=== PATIENT | male | born 1950 | race Two or more races ===

== ENCOUNTER 2024-09-08 15:35 | Emergency (ER) | payer MEDICARE, SELFPAY ==
[2024-09-08 15:37] VITALS: BMI 29.9
[2024-09-08 15:59] VITALS: BP 174/91; PULSE 90; RESP 17; TEMP 37.5; O2SAT 96
--- NOTE | 2024-09-08 16:05 | XR_ITS ---
Examination: Abdomen AP single view Technique: AP portable supine abdomen, single view Exam date and time: September 08, 2024 1614 hrs. Indications: Abdominal pain and distention vomiting today Findings: Nonobstructive bowel gas pattern. Moderate stool throughout the colon. No free air. Mild to moderate narrowing hip joints Impression: Nonobstructive bowel gas pattern
--- NOTE | 2024-09-08 16:06 | PD.EDRME ---
Rapid Medical Screening Exam E Arrival date/time: 09/08/24 15:35 This is a 74-year-old male that comes in with complaints of abdominal pain, abdominal bloating, hiccups vomiting and diarrhea. Patient states symptoms started last night. Patient has a low-grade temp upon arrival. Patient has a history of diabetes and high blood pressure. Chief Complaint: Abdominal Pain Time Seen by Provider: 09/08/24 15:58 Vital signs: Vital Signs Temperature 99.5 F 09/08/24 15:59 Pulse Rate 90 09/08/24 15:59 Respiratory Rate 17 09/08/24 15:59 Blood Pressure 174/91 H 09/08/24 15:59 Pulse Oximetry (%) 96 09/08/24 15:59 Oxygen Delivery Method Room Air 09/08/24 15:59
[2024-09-08 16:28] LABS: Collection Type, Urine Voided; Squamous Epithelial Cell,Urine 0 /hpf (0-5)
[2024-09-08 16:46] LABS: Basophils # (Auto) 0.0 Thou/mm3 (0.0-0.2); Basophils % (Auto) 1 % (0-2.5); Eosinophils # (Auto) 0.4 Thou/mm3 (0.0-0.5); Eosinophils % (Auto) 5 % (0-10); Hematocrit 39.5 % (41.0-53.0); Hemoglobin 14.0 g/dL (13.5-16.0); Immature Granulocytes Auto 0.03 Thou/mm3 (0.00-0.00); Lymphocytes # (Auto) 1.0 Thou/mm3 (1.0-4.8); Lymphocytes % (Auto) 15 % (10-50); Mean Corpuscular HGB Conc 35.4 g/dl (31.0-37.0); Mean Corpuscular Hemoglobin 30.2 pg (25.0-35.0); Mean Corpuscular Volume 85 fL (80-100); Monocytes # (Auto) 0.5 Thou/mm3 (0.0-0.8); Monocytes % (Auto) 7 % (0-12); Neutrophils # (Auto) 5.0 Thou/mm3 (1.8-7.7); Neutrophils % (Auto) 72 % (37-80); Nucleated Red Blood Cell # 0.00 Thou/mm3 (0.00-0.00); Nucleated Red Blood Cell % 0 /100 WBC (0); Platelet Count 152 Thou/mm3 (140-440); RDW Standard Deviation 41.1 fL (35.1-43.9); Red Blood Count 4.64 Miln/mm3 (4.50-5.90); White Blood Count 6.9 Thou/mm3 (3.8-10.6)
[2024-09-08 16:47] LABS: Bilirubin,Urine Negative (Negative); Blood,Urine 1+ (Negative); Clarity,Urine Clear (Clear/Hazy); Color,Urine Yellow (Lt Yel-Yel); Culture Indicated,Urine Not Indicated; Glucose, Urine Negative (Negative); Ketones,Urine Negative (Negative); Leukocyte Esterase,Urine Negative (Negative); Nitrite,Urine Negative (Negative); PH,Urine 5.5 (5.0-7.0); Protein,Urine Trace (Neg - Trace); RBC,Urine 5 /hpf (0-3); Specific Gravity,Urine 1.025 (1.001-1.035); Urobilinogen,Urine Negative mg/dL (0.0-1.0); WBC,Urine 2 /hpf (0-5)
[2024-09-08 17:13] LABS: Alanine Aminotransferase 31 U/L (10-49); Albumin, Serum 4.5 gm/dL (3.4-4.8); Albumin/Globulin Ratio 1.8 (1.2-2.2); Alkaline Phosphatase 56 U/L (46-116); Anion Gap 11 (7-16); Aspartate Amino Transferase 22 U/L (0-34); BUN/Creatinine Ratio 14 Ratio (12-20); Bilirubin,Total 1.0 mg/dL (0.3-1.2); Blood Urea Nitrogen 13 mg/dL (9-23); Calcium 8.8 mg/dL (8.3-10.6); Calcium (Corrected) 8.8 mg/dL (8.5-10.1); Carbon Dioxide 24.0 mMol/L (20.0-31.0); Chloride 105 mMol/L (98-107); Creatinine (Component) 0.9 mg/dL (0.6-1.3); Estimated Creatinine Clearance 71.9 mL/min (>60); Globulin 2.5 gm/dL (2.3-3.5); Glucose 179 mg/dL (74-106); Lipase 22 U/L (12-53); Osmolality,Calculated 283 (275-295); Potassium 3.6 mMol/L (3.4-5.1); Sodium 140 mMol/L (136-145); Total Protein 7.0 gm/dL (5.7-8.2); eGFR > 60 See Note
--- NOTE | 2024-09-08 17:30 | PD.EDABDPN ---
ED Abdominal Pain RME/HPI General Chief Complaint: Abdominal Pain Stated complaint: ABD PAIN, HICCUPS, NAUSEA Time seen by provider: 09/08/24 15:58 Arrival date/time: 09/08/24 15:35 Limitations: no limitations RME / HPI RME / HPI narrative: 09/08/24 15:35 This is a 74-year-old male that comes in with complaints of abdominal pain, abdominal bloating, hiccups vomiting and diarrhea. Patient states symptoms started last night. Patient has a low-grade temp upon arrival. Patient has a history of diabetes and high blood pressure. DR. AVI JOHNSON ED EVALUATION 74 year old male with history of hypertension, diabetes, and prostate with status post robotic surgery presents to the ED with complaint of abdominal pain, nausea, and persistent hiccups beginning last night. States for dinner he had chicken wings and two beers. Reportedly shortly after eating his abdomen felt bloated that was accompanied by nausea and vomiting. Shortly after followed by hiccups remaining constant since. No other associated symptoms or complaints reported. Denies fevers, chills, chest pain, cough, shortness of breath, changes in bowel habits, or urinary symptoms. Related Data Home Medications ?Medication ?Instructions ?Recorded ?Confirmed atorvastatin 20 mg tablet (Lipitor) 20 mg PO QDAY 10/11/19 12/18/23 amlodipine 10 mg tablet 10 mg PO QDAY 05/04/20 12/18/23 metformin 1,000 mg tablet 1,000 mg PO BID 05/04/20 12/18/23 tadalafil 10 mg tablet (Cialis) 10 mg PO DIRECTED PRN 07/20/21 12/18/23 cholecalciferol (vitamin D3) 50 50 mcg PO QDAY 06/10/22 12/18/23 mcg (2,000 unit) capsule Allergies Allergy/AdvReac Type Severity Reaction Status Date / Time No Known Allergies Allergy Verified 09/08/24 15:36 Review of Systems Review of Systems Systems Reviewed: All systems reviewed, normal except as documented Past Medical History Past Medical History CARDIAC: Negative Congestive Heart Failure RESPIRATORY: Negative Chronic Obstructive Pulmonary Disease (COPD) GENITOURINARY: Negative Renal Disease ENDOCRINE: Negative Diabetes Mellitus Type 1 or Diabetes Mellitus Type 2 Social History SMOKING STATUS: Never smoker ED Exam General Limitations: Present no limitations General appearance: Present alert and in no apparent distress Head Head exam: Present atraumatic, normocephalic and normal inspection Eye Eye exam: Present normal appearance, PERRL and EOMI ENT ENT exam: Present normal exam, normal oropharynx and mucous membranes moist Neck Neck exam: Present normal inspection, full ROM and trachea midline Chest Chest inspection: Present normal inspection and symmetric chest wall rise Respiratory Respiratory exam: Present normal lung sounds bilaterally Cardiovascular Cardiovascular exam: Present regular rate, normal rhythm and normal heart sounds Abdominal Exam Abdominal exam: Present soft and normal bowel sounds Extremities Exam Extremities exam: Present normal inspection and full ROM Back Exam Back exam: Present normal inspection and full ROM Neurological Exam Neurological exam: Present alert, oriented X3 and CN II-XII intact Psychiatric Psychiatric exam: Present normal affect and normal mood Skin Skin exam: Present warm, dry, intact and normal color Course Quality Measures none Orders Category Date Time Status Bedside COVID-19 Antigen Test NOW Care 09/08/24 16:05 Completed Bedside Influenza A&B Antigen Test NOW Care 09/08/24 16:05 Completed Insert IV NOW Care 09/08/24 20:05 Completed KUB [XR abdomen 1V] Stat Exams 09/08/24 16:05 Completed CBC Stat Lab 09/08/24 16:26 Completed Comprehensive Metabolic Panel Stat Lab 09/08/24 16:26 Completed Lipase Stat Lab 09/08/24 16:26 Completed Troponin I Stat Lab 09/08/24 16:26 Completed Urinalysis, C/S if Indicated Stat Lab 09/08/24 16:19 Completed DiphenhydrAMINE [Benadryl] Med 09/08/24 17:28 Discontinued 12.5 mg PO X1 ONE Metoclopramide Inj [Reglan Inj] Med 09/08/24 20:02 Discontinued 10 mg IVP X1 ONE Metoclopramide [Reglan] Med 09/08/24 17:27 Discontinued 10 mg PO X1 ONE Vital Signs Vital signs: Vital Signs Temperature 99.5 F 09/08/24 15:59 Pulse Rate 90 09/08/24 15:59 Respiratory Rate 17 09/08/24 15:59 Blood Pressure 174/91 H 09/08/24 15:59 Pulse Oximetry (%) 96 09/08/24 15:59 Oxygen Delivery Method Room Air 09/08/24 15:59 Pulse ox is 96% on room air which is adequate. Abdominal Pain MDM MDM Narrative MDM Narrative:: I, Debra Adkins am scribing for and in the presence of Dr. Isabel. 1800: Patient signed out to Dr. Antoine pending reevaluation and final disposition. Patient data External records reviewed:: [facility] previous records (I reviewed outpatient uro note from 12/21/2023 ) Clinical information provided by:: patient Social determinants that could affect healthcare access:: alcohol use (occasional alcohol use ) Patient has the following chronic illnesses:: hypertension, diabetes, and prostate with status post robotic surgery How is presenting disease/condition affected by chronic disease/condition?: exacerbated by Evaluation data The following diagnostics were reviewed and interpreted by me:: lab results and radiology exam(s) Lab and/or radiology exams considered but not ordered:: None Interpretation Summary: Ordering Physician: Alicia Whatley NP Date of Service: 09/08/24 Procedure(s): XR abdomen 1V Accession Number(s): [id number] cc: Jeffrey Sheldon MD; Alicia Whatley NP; Brandy Garsia NP~ Examination: Abdomen AP single view Technique: AP portable supine abdomen, single view Exam date and time: September 08, 2024 1614 hrs. Indications: Abdominal pain and distention vomiting today Findings: Nonobstructive bowel gas pattern. Moderate stool throughout the colon. No free air. Mild to moderate narrowing hip joints Impression: Nonobstructive bowel gas pattern Dictated By: Jeffrey Sheldon MD Signed By: <Electronically signed by Jeffrey Sheldon MD in OV> 09/08/24 1642 Medications / Prescriptions Medications or Prescriptions considered but not ordered:: None Medication administrations:: Medication Administration History Discontinued Medications Diphenhydramine HCl (Diphenhydramine Elix 25 Mg/10 Ml [facility] [place] 12.5 mg PO X1 ONE Stop: 09/08/24 17:29 Last Admin: 09/08/24 17:41 Dose: 12.5 mg Documented By: ALBERTINA Metoclopramide HCl (Metoclopramide 5 Mg Tablet) 10 mg PO X1 ONE Stop: 09/08/24 17:28 Last Admin: 09/08/24 17:41 Dose: 10 mg Documented By: ALBERTINA Metoclopramide HCl (Metoclopramide Inj 5 Mg/Ml Vial 2 Ml) 10 mg IVP X1 ONE; Protocol Stop: 09/08/24 20:03 Last Admin: 09/08/24 20:14 Dose: 10 mg Documented By: CHARITO See above Consultations Consultation(s) initiated? (list below): No Diagnosis Differential diagnosis abdominal pain: abdominal pain, gastroenteritis and other (gastritis ) Most likely diagnosis given after review of the tests above:: Hiccups Abdominal pain Admission Indicated Admission indicated?: not indicated Explain why admission is indicated or not indicated:: Signed out pending final disposition Admission Request Was there a request for admission?: No Disposition Plan Disposition Plan: other (specify) (Signed out to Dr. Antoine pending reevaluation and final disposition. ) Discharge Plan Plan Patient Disposition: HOME (Self Care) Prescriptions/Referrals Prescriptions/Med Rec: No Action amlodipine 10 mg tablet 10 mg PO QDAY metformin 1,000 mg tablet 1,000 mg PO BID tadalafil [Cialis] 10 mg tablet 10 mg PO DIRECTED PRN Patient Comments: twice a week cholecalciferol (vitamin D3) 50 mcg (2,000 unit) capsule 50 mcg PO QDAY atorvastatin [Lipitor] 20 mg tablet 20 mg PO QDAY Referrals: Brandy Garsia, [employer] [Primary Care Provider] - In 1 week Problem List Clinical Impression: Hiccups Patient/Caregiver Discharge Instructions Education Materials: ED Hiccups Print Language: British Stand Alone Forms: Elisabeth Award Info., Patient Portal Info Letter
[2024-09-08] MEDS: DiphenhydrAMINE ELIX 25 MG/10 ML UDC 12.5 MG PO (17:41)
[2024-09-08] MEDS: METOCLOPRAMIDE 5 MG TABLET 10 MG PO (17:41)
[2024-09-08 18:13] VITALS: BP 140/76; PULSE 71; RESP 18; TEMP 36.9; O2SAT 94
--- NOTE | 2024-09-08 18:30 | PD.EDADDENDU ---
Emergency Room Addendum Addendum Narrative: 1800: Care assumed from Dr. Isabel (emergency physician). Past medical, surgical, social and family history reviewed. Vitals and home medications reviewed. Results and treatment plan discussed. I will assume the care of the patient at this time and will follow the patient, pending re-eval and final disposition. 2052: I have spoken with the patient and discussed today?s findings, in addition to providing specific details for the plan of care. Questions are answered and there is an agreement with the plan. Re-assessment at the time of disposition demonstrates that the patient is in no acute distress. The patient has remained stable throughout the entire ED visit and is without objective evidence for acute process requiring urgent intervention or hospitalization. The patient is stable for discharge; counseling is provided and documented as above, discussing symptomatic treatment and specific conditions for return.
[2024-09-08 19:22] VITALS: BP 157/83; PULSE 78; RESP 15; TEMP 37.3; O2SAT 95
--- NOTE | 2024-09-08 19:27 | PC.NURSE ---
PT ARRIVED TO THE ED FOR 1X DAY OF HICCUPS, ABDOMINAL PAIN, AND NAUSEA
[2024-09-08] MEDS: METOCLOPRAMIDE INJ 5 MG/ML VIAL 2 ML 10 MG IVP (20:14)
[2024-09-08 21:25] LABS: Troponin I < 0.020 ng/mL (0.0-0.045)
[2024-09-08 21:39] VITALS: BP 150/72; PULSE 81; RESP 15; TEMP 36.8; O2SAT 94
== END 2024-09-08 21:38 | disposition home or self-care (01) ==
PROVIDERS: Nurse Practitioner Family; Emergency Provider Emergency Medicine; PCP Registered Nurse Pediatrics
DX: R06.6 Hiccough (principal); R10.9 Unspecified abdominal pain; E11.9 Type 2 diabetes mellitus without complications; R11.2 Nausea with vomiting, unspecified
CPT/HCPCS: 36415; 74018; 80053; 81001; 83690; 84484; 85025; 87400; 87811; 96374; 99284; J2765; A9270

== ENCOUNTER → 2024-11-19 | Outpatient (CLI) | payer MEDICARE, SELFPAY ==
--- NOTE | 2024-11-19 14:30 | XR_ITS ---
Examination: Retroperitoneal ultrasound, complete Technique: Multiple high resolution grayscale images of the retroperitoneum obtained, including kidneys and bladder. Exam date and time:November 19, 2024 1548 hours INDICATIONS: Hematuria episodes 4 months ago, urinary frequency FINDINGS: Right kidney 11.5 cm cortex 1.8 cm Left kidney 12.5 cm cortex 2.3 cm Mild renal scar formation No hydronephrosis or renal calculi No bladder mass or bladder calculi Bladder prevoid volume 142 cc IMPRESSION: Mild renal scar formation No renal calculi or hydronephrosis
== END | disposition home or self-care (01) ==
PROVIDERS: PCP Surgery; Referring Provider Surgery; Visit Provider Surgery
DX: N28.89 Other specified disorders of kidney and ureter (principal); C61 Malignant neoplasm of prostate
CPT/HCPCS: 76770